=== PATIENT | female | born 1985 | race Caucasian/White ===

== ENCOUNTER → 2019-01-01 14:23 | Outpatient (CLI) | payer MEDICAID, SELFPAY ==
[2019-01-01 15:27] LABS: Basophils # 0.1 K/mm3 (0-0.2); Basophils % 0.4 % (0.1-2.0); Eosinophils # 0.5 K/mm3 (0.0-0.4); Eosinophils % 3.9 % (0.1-12.0); Hematocrit 44.5 % (37.0-47.0); Hemoglobin 14.4 g/dL (12.2-16.2); Lymphocytes # 2.8 K/mm3 (0.7-4.5); Lymphocytes % 21.4 % (10-50); Mean Corpuscular HGB Conc 32.4 g/dL (31.8-35.4); Mean Corpuscular Hemoglobin 31.2 pg (27.0-31.2); Mean Corpuscular Volume 96.3 fl (81-99); Mean Platelet Volume 8.4 fl (7.4-10.4); Monocytes # 0.6 K/mm3 (0.1-1.0); Monocytes % 4.7 % (1.7-9.3); Neutrophils % 69.5 % (37.0-80.0); Platelet Count 327 K/mm3 (142-424); Red Blood Count 4.62 M/mm3 (4.20-5.40); Red Cell Distribution Width 12.6 % (11.5-17.5)
[2019-01-01 17:45] LABS: Alanine Aminotransferase 28 U/L (12-78); Albumin Level 4.2 gm/dL (3.4-5.0); Albumin/Globulin Ratio 1.3 (1.1-1.8); Alkaline Phosphatase 68 U/L (46-116); Anion Gap 13.1 mEq/L (5-15); Aspartate Amino Transferase 12 U/L (15-37); Bilirubin,Total 0.3 mg/dL (0.2-1.0); Blood Urea Nitrogen 11 mg/dL (7-18); Calcium 9.2 mg/dL (8.5-10.1); Carbon Dioxide 27 mmol/L (21.0-32.0); Chloride 102 mmol/L (98-107); Chol/HDL Ratio 4.6 (1-3.5); Cholesterol 170 mg/dL (140-200); Creatinine,Serum 0.76 mg/dL (0.55-1.02); Estimated Glomerular Filt Rate 87 ml/min (>60); Free T4 (Free Thyroxine) 0.88 ng/dl (0.76-1.46); GFR (African American) 105 ML/MIN (>60); Globulin 3.2 gm/dl (1.3-3.2); Glucose 119 mg/dL (74-106); HDL Cholesterol 37 mg/dL (29-89); LDL Cholesterol 92 mg/dL (0-130); Potassium 4.1 mmoL/L (3.5-5.1); Sodium 138 mmol/L (136-145); Total Protein,Serum 7.4 gm/dL (6.4-8.2); Triglycerides 206 mg/dL (30-200); VLDL Cholesterol 41 mg/dL (0-40)
[2019-01-03 17:08] LABS: Hep A Ab, IgM Negative (Negative); Hepatitis B Core Antibody IgM Negative (Negative); Hepatitis B Surface Antigen Negative (Negative)
[2019-01-04 09:54] LABS: Hepatitis C Antibody 0.3 s/co ratio (0.0-0.9)
[2019-01-04 09:55] LABS: Vitamin D 25 Hydroxy 29.6 ng/mL (30.0-100.0)
== END ==
PROVIDERS: Visit Provider Emergency Medicine
DX: R53.83 Other fatigue (principal); Z00.00 Encounter for general adult medical examination without abnormal findings; Z98.2 Presence of cerebrospinal fluid drainage device; Z72.0 Tobacco use; E66.3 Overweight; F32.9 Major depressive disorder, single episode, unspecified; F41.9 Anxiety disorder, unspecified
CPT/HCPCS: 80053; 80061; 80074; 82652; 84439; 84443; 85025

== ENCOUNTER → 2019-01-09 09:18 | Outpatient (CLI) | payer MEDICAID, SELFPAY ==
[2019-01-09 10:41] LABS: Anion Gap 13.2 mEq/L (5-15); Blood Urea Nitrogen 9 mg/dL (7-18); Calcium 8.8 mg/dL (8.5-10.1); Carbon Dioxide 29 mmol/L (21.0-32.0); Chloride 104 mmol/L (98-107); Creatinine,Serum 0.66 mg/dL (0.55-1.02); Estimated Glomerular Filt Rate 103 ml/min (>60); GFR (African American) 124 ML/MIN (>60); Glucose 106 mg/dL (74-106); Potassium 4.2 mmoL/L (3.5-5.1); Sodium 142 mmol/L (136-145)
== END ==
PROVIDERS: Physician Assistant; Visit Provider Emergency Medicine
DX: R73.9 Hyperglycemia, unspecified (principal)
CPT/HCPCS: 36415; 80048

== ENCOUNTER → 2019-02-27 12:40 | Outpatient (CLI) | payer MEDICAID, SELFPAY ==
--- NOTE | 2019-02-27 12:43 | XR_ITS ---
PROCEDURE: XR ANKLE RT MIN 3V CLINICAL INDICATION: pain Right ankle pain COMPARISON: No exams were available for comparison FINDINGS: No fracture, dislocation, lytic change, or blastic change evident. No significant degenerative change IMPRESSION: No acute findings. Dictated by: Charlie Medrano MD 02/27/2019 17:24 Electronically signed by Charlie Medrano MD in [facility] 02/27/2019 17:24
== END ==
PROVIDERS: PCP Emergency Medicine; Referring Provider Nurse Practitioner Family; Visit Provider Nurse Practitioner Family
DX: M25.571 Pain in right ankle and joints of right foot (principal)
CPT/HCPCS: 73610

== ENCOUNTER → 2019-03-16 14:03 | Outpatient (CLI) | payer MEDICAID, SELFPAY ==
--- NOTE | 2019-03-16 14:04 | XR_ITS ---
PROCEDURE: XR KNEE RT 3V CLINICAL INDICATION: pain COMPARISON: No exams were available for comparison FINDINGS: No fracture or dislocation. No lytic or blastic change. There is normal mineralization. The joint spaces are well-preserved. No significant degenerative/arthritic changes. No erosive changes evident. Other findings:There is a well-circumscribed lucency overlying the intercondylar region of the distal femur and may be due to a small cortical defect IMPRESSION: No acute findings. Dictated by: Charlie Medrano MD 03/16/2019 16:29 Electronically signed by Charlie Medrano MD in [facility] 03/16/2019 16:29
--- NOTE | 2019-03-16 14:04 | US_ITS ---
PROCEDURE: US TRANSVAGINAL CLINICAL INDICATION: US T/V- DUB Pelvic Pain COMPARISON: No exams were available for comparison FINDINGS: UTERUS: 8.8 x 3.4 x 5.4 cm. Combined endometrial thickness is 6 mm. scar is noted along the anterior and lower aspect of the uterus. LEFT OVARY: 2.5 x 2.3 cm. Unremarkable appearance. Positive blood flow RIGHT OVARY: 4.5 cm x 2.7 cm with small follicles noted and positive blood flow.. The there is a 1.8 cm hypoechoic area within the right ovary with some low level echoes and may be due to a small hemorrhagic cyst. There is a small amount of fluid in the cul-de-sac. IMPRESSION: 1.8 cm complex right ovarian cyst which could be due to a hemorrhagic or ruptured ovarian cyst with a small amount of fluid in the cul-de-sac Dictated by: Charlie Medrano MD 03/16/2019 17:36 Electronically signed by Charlie Medrano MD in [facility] 03/16/2019 17:36
== END ==
PROVIDERS: PCP Emergency Medicine; Visit Provider Obstetrics & Gynecology
DX: N93.8 Other specified abnormal uterine and vaginal bleeding (principal); R10.2 Pelvic and perineal pain; M25.569 Pain in unspecified knee
CPT/HCPCS: 73562; 76830

== ENCOUNTER → 2019-05-07 13:16 | Outpatient (CLI) | payer MEDICAID, SELFPAY ==
--- NOTE | 2019-05-07 13:36 | XR_ITS ---
PROCEDURE: XR LUMBAR SPINE 2-3V CLINICAL INDICATION: pain Midline back pain COMPARISON: No exams were available for comparison FINDINGS: There is normal alignment. No fracture or dislocation. No lytic or blastic change. A ORDNANCE ENGINEERING TECHNICIAN shunt traverses the right abdomen with tip in the left pelvic region. There is a nonspecific calcific density overlying the medial aspect of the right ilium at 6 mm. This is nonspecific and could be due to an appendicoliths. There are 2 calcific densities in the left pelvic region which may be due to phleboliths. A metallic clip is present over the left paracentral aspect of the mid sacrum IMPRESSION: 1. Negative lumbar spine. 2. Possible appendicoliths Dictated by: Charlie Medrano MD 05/07/2019 14:38 Electronically signed by Charlie Medrano MD in [facility] 05/07/2019 14:38
[2019-05-07 14:07] LABS: Erythrocyte Sedimentation Rate 15 mm/hr (0-20)
[2019-05-07 14:23] LABS: C-Reactive Protein < 0.2 mg/dL (0.0-0.9)
[2019-05-09 11:08] LABS: PTT-LA 41.7 sec (0.0-51.9); dRVVT 44.4 sec (0.0-47.0)
[2019-05-09 17:55] LABS: Lupus Reflex Interpretation Comment: (.)
[2019-05-09 18:00] LABS: RA Latex Turbid. <10.0 IU/mL (0.0-13.9)
[2019-05-10 07:08] LABS: Anti-Cyclic Citrullinated Pept 6 units (0-19)
[2019-05-10 13:28] LABS: Anti-Centromere B Antibodies <0.2 AI (0.0-0.9); Anti-Jo-1 <0.2 AI (0.0-0.9); Anti-Smith Antibody <0.2 AI (0.0-0.9); Antichromatin Antibodies <0.2 AI (0.0-0.9); Antiscleroderma-70 Antibodies <0.2 AI (0.0-0.9); RNP Antibodies <0.2 AI (0.0-0.9); Sjogren's Anti-SS-A <0.2 AI (0.0-0.9); Sjogren's Anti-SS-B <0.2 AI (0.0-0.9)
[2019-05-10 14:49] LABS: Anti-DNA (DS) Ab Qn 1 IU/mL (0-9)
== END ==
PROVIDERS: PCP Emergency Medicine; Visit Provider Nurse Practitioner Family
DX: M54.41 Lumbago with sciatica, right side (principal)
CPT/HCPCS: 36415; 72100; 85613; 85651; 86140; 86200; 86225; 86235; 86431

== ENCOUNTER → 2019-06-04 13:47 | Outpatient (CLI) | payer MEDICAID, SELFPAY ==
--- NOTE | 2019-06-04 13:48 | CT_ITS ---
PROCEDURE: CT HEAD/BRAIN WO CON CLINICAL INDICATION: gao, hx of brain shunt Headaches, history of shunt COMPARISON: No exams were available for comparison TECHNIQUE: Axial images obtained. All CT scans at the facility use one or more dose reduction, viz: automated exposure control, ma/kV adjustment per patient size (including targeted exams where dose is matched to indication, i.e. head), or iterative reconstruction technique. FINDINGS: No midline shift, mass effect, intracranial hemorrhage, hydrocephalus, or extra-axial fluid collection is evident. A FABRIC LAY OUT WORKER shunt is present entering the cranium in the right parietal region with the tip projecting along the anterior horn of the right lateral ventricle. The right lateral ventricle is smaller than the left. Unremarkable appearing left lateral ventricle. No hydrocephalus. No acute intracranial hemorrhage. There is a small defect in the right frontal lobe which could be due to an old ventriculostomy site. The calvarium has an unremarkable appearance. No mastoid effusion. There is mucosal thickening of the frontal sinuses inferiorly IMPRESSION: 1. No acute intracranial finding. 2. FABRIC LAY OUT WORKER shunt present as described above. 3. Bilateral frontal sinus disease Dictated by: Charlie Medrano MD 06/04/2019 14:42 Electronically signed by Charlie Medrano MD in [facility] 06/04/2019 14:42
== END ==
PROVIDERS: PCP Emergency Medicine; Visit Provider Emergency Medicine
DX: R51 Headache (principal); Z98.2 Presence of cerebrospinal fluid drainage device
CPT/HCPCS: 70450

== ENCOUNTER → 2019-06-21 10:21 | Outpatient (POV) | payer MEDICAID, SELFPAY | PROVIDERS: PCP Specialist; Visit Provider Specialist | DX: G25.81 Restless legs syndrome (principal); M54.9 Dorsalgia, unspecified | CPT/HCPCS: 95886; 95908 ==

== ENCOUNTER → 2021-01-16 10:18 | Outpatient (CLI) | payer MEDICAID, SELFPAY | PROVIDERS: PCP Emergency Medicine; Visit Provider Nurse Practitioner | DX: Z20.822 Contact with and (suspected) exposure to COVID-19 (principal) | CPT/HCPCS: C9803; U0003; U0005 ==

== ENCOUNTER 2022-02-21 21:36 | Emergency (ER) | payer MEDICAID, SELFPAY ==
[2022-02-21 21:36] VITALS: BP 122/86; PULSE 68; RESP 16; TEMP 36.6; O2SAT 100; BMI 20.9
--- NOTE | 2022-02-21 21:37 | ECG_ITS ---
APPROVED REPORT Exam: Resting ECG HR:69 bpm ECG Measurements Heart Rate 69 AXES DC 143 P 59 QRSd 81 QRS 92 QT 379 T 47 QTc 398 Conclusion SINUS RHYTHM WITH SINUS ARRHYTHMIA BORDERLINE RIGHT AXIS DEVIATION [QRS AXIS > 90] BORDERLINE ECG UNCONFIRMED REPORT Electronically signed by : Rohith Gong MD 02/24/2022 21:22:09
--- NOTE | 2022-02-21 21:45 | XR_ITS ---
PROCEDURE INFORMATION: Exam: XR Chest Exam date and time: 02/21/2022 9:42 PM Age: 36 years old Clinical indication: Sternal or substernal pain; Prior surgery; Surgery date: 6+ months; Surgery type: Shunt; Additional info: Chest pain TECHNIQUE: Imaging protocol: Radiologic exam of the chest. Views: 2 views. COMPARISON: No relevant prior studies available. FINDINGS: Tubes, catheters and devices: Shunt is partially visualized along the right neck and thorax with the tip not definitively identified. Lungs: No consolidation. Pleural spaces: No pneumothorax. Heart/Mediastinum: No cardiomegaly. Bones/joints: No acute fracture. IMPRESSION: Shunt is partially visualized along the right neck and thorax with the tip not definitively identified.
--- NOTE | 2022-02-21 21:50 | PC.NURSE ---
Pt gone to RAD for CXR
[2022-02-21 21:55] LABS: Basophils # 0.2 K/mm3 (0-0.2); Basophils % 1.3 % (0.1-2.0); Eosinophils # 0.3 K/mm3 (0.0-0.4); Eosinophils % 2.2 % (0.1-12.0); Hematocrit 48.3 % (37.0-47.0); Hemoglobin 15.7 g/dL (12.2-16.2); Lymphocytes # 3.6 K/mm3 (0.7-4.5); Lymphocytes % 29.2 % (10-50); Mean Corpuscular HGB Conc 32.5 g/dL (31.8-35.4); Mean Corpuscular Hemoglobin 30.7 pg (27.0-31.2); Mean Corpuscular Volume 94.4 fl (81-99); Mean Platelet Volume 8.3 fl (7.4-10.4); Monocytes # 0.5 K/mm3 (0.1-1.0); Monocytes % 4.4 % (1.7-9.3); Neutrophils # 7.7 K/mm3 (1.8-7.8); Neutrophils % 62.8 % (37.0-80.0); Platelet Count 346 K/mm3 (142-424); Red Blood Count 5.12 M/mm3 (4.20-5.40); Red Cell Distribution Width 12.7 % (11.5-17.5); White Blood Count 12.3 K/mm3 (4.8-10.8)
--- NOTE | 2022-02-21 22:02 | PC.NURSE ---
Pt back from RAD
[2022-02-21 22:07] LABS: Chloride 101 mmol/L (98-107); Potassium 3.7 mmoL/L (3.5-5.1)
[2022-02-21 22:10] LABS: Blood Urea Nitrogen 7 mg/dl (7-17); Carbon Dioxide 30 mmol/L (22.0-30.0); Creatinine Clearance Estimated 102 mL/min (50-200); Estimated Glomerular Filt Rate 94 ml/min (>60); GFR (African American) 114 ML/MIN (>60)
[2022-02-21 22:11] LABS: Calcium 9.1 mg/dl (8.4-10.2); Glucose 102 mg/dl (74-100)
[2022-02-21 22:34] LABS: Troponin I < 0.01 ng/ml (0.00-0.034)
[2022-02-21 22:51] LABS: Anion Gap 13.7 mEq/L (5-15); Sodium 141 mmol/L (136-145)
[2022-02-21 23:00] VITALS: BP 122/72; PULSE 84; O2SAT 98
[2022-02-21 23:01] LABS: Lipase 67 U/L (23-300)
--- NOTE | 2022-02-21 23:01 | PC.NURSE ---
Dr. Suh at
--- NOTE | 2022-02-21 23:01 | HMH.EDCP ---
Discharge Plan Disposition Patient Disposition: Home, Self-Care Chief Complaint: Chest Pain Prescriptions Prescriptions: No Action albuterol sulfate 90 mcg/actuation HFA aerosol inhaler 2 puff INHALATION Q4-6H PRN (Reason: asthma) buspirone 10 mg tablet 10 mg PO .COMPLEX Qty: 30 0RF Rx Instructions: 10 mg PO at bedtime; duloxetine 30 mg capsule,delayed release(DR/EC) 30 mg PO DAILY Qty: 30 0RF Rx Instructions: take with the 60mg capsule; dosage is 90mg total daily. duloxetine 60 mg capsule,delayed release(DR/EC) 60 mg PO DAILY Qty: 30 0RF Rx Instructions: take with the 30mg capsule; the dosage is 90mg total montelukast 10 mg tablet 10 mg PO QPM Qty: 90 0RF omeprazole 40 MG capsule,delayed release(DR/EC) 40 mg PO DAILY Referrals Follow up/Referrals: Dawson Suh MD [Primary Care Provider] - See instructions Clinical Impressions Clinical Impression: History of brain shunt, Tobacco use, Atypical chest pain, Cholelithiasis Discharge ED Provider: Dawson Suh Chest Pain HPI General Chief Complaint: Chest Pain Stated Complaint: Chest Pain Time Seen by Provider: 02/21/22 23:01 Mode of Arrival: Ambulatory Source of Information: Patient and Medical Record Limitations: No Limitations Description of Symptoms (Recalled from ER Triage Doc. by RN): Pt reports chest pain that started yesterday that she thought was heart burn and later subsided. Pt says today the pain became worse and describes it as a pressure and rates pain 7 out of 10. No radiating pain. Denies SOA, N/V/D, diaphoresis. History of Present Illness HPI narrative: ant chest pain last pm and tonight - pressure - no known card dis - has brain shunt - complaint: chest pain Onset (ago): day(s) Duration: intermittent Activity at onset: during rest Pain location: substernal Severity: moderate Quality: other (pressure ) Pain radiation: none Relieving factors: nothing Exacerbating factors: nothing Risk Factors for CAD: Family Hx of CAD and Smoking Treatments prior to or on arrival for Cardiac Chest Pain: none Contraindication for Aspirin: Adverse reaction to drug JUVENAL Score for Non-Stemi Age of Patient: 30-39 years old Heart Rate: 50-69 bpm Systolic Blood Pressure: 120-139 mmhg Serum Creatinine: 0.40-0.79 mg/dl CHF Killip Class: I-No CHF Other Risk Factors: None Non-Stemi Risk Score: 49 Related Data On Oral Contraceptives: No Home Medications Medication Instructions Recorded Confirmed albuterol sulfate 90 mcg/actuation 2 puff inhalation Q4-6H PRN asthma 02/26/19 07/19/19 aerosol inhaler omeprazole 40 mg capsule,delayed 40 mg PO DAILY GERD 04/15/19 07/19/19 release Previous Rx's Medication Instructions Recorded buspirone 10 mg tablet 10 mg PO .COMPLEX Depression #30 07/19/19 tabs duloxetine 30 mg capsule,delayed 30 mg PO DAILY Depression #30 caps 07/19/19 release duloxetine 60 mg capsule,delayed 60 mg PO DAILY Depression #30 caps 07/19/19 release montelukast 10 mg tablet 10 mg PO QPM Breathing problems 07/28/19 #90 tabs Allergies Allergy/AdvReac Type Severity Reaction Status Date / Time gabapentin Allergy Intermediate Verified 07/19/19 15:47 aspirin Allergy Verified 07/19/19 15:47 PFSH PFSH Social History Smoking Status: Current every day smoker tobacco type: cigarettes packs per day: 1 and smokeless tobacco alcohol intake: former substance use type: denies use current occupational status: unemployed Travel in the last 8 weeks: None household members: family housing: house number of children: 2 ROS Obtained: Yes All systems reviewed & no additional complaints except as documented Constitutional Constitutional: Denies fever(s) Cardiovascular Cardiovascular: Reports as per HPI and Reports chest pain Physical Exam General General appearance: alert Head Head exam: normocephalic Eye Eye exam: Present PERRL and EOMI ENT ENT ex
--- NOTE | 2022-02-21 23:04 | CT_ITS ---
PROCEDURE INFORMATION: Exam: CTA Chest With Contrast Exam date and time: 02/21/2022 11:27 PM Age: 36 years old Clinical indication: Pain; Angina pectoris; Additional info: Chest pain TECHNIQUE: Imaging protocol: Computed tomographic angiography of the chest with contrast. 3D rendering (Not supervised by radiologist): MIP and/or 3D reconstructed images were created by the technologist. Radiation optimization: All CT scans at this facility use at least one of these dose optimization techniques: automated exposure control; mA and/or kV adjustment per patient size (includes targeted exams where dose is matched to clinical indication); or iterative reconstruction. Contrast material: ISOVUE 370; Contrast volume: 70 ml; Contrast route: INTRAVENOUS (IV); COMPARISON: CR XR CHEST 2V 02/21/2022 9:42 PM FINDINGS: Tubes, catheters and devices: Shunt. Pulmonary arteries: No pulmonary embolism. Aorta: Unremarkable. No aneurysm. Lungs: No consolidation. Few nodules and/or focal scarring, up to 0.3 cm. Pleural spaces: No significant pleural effusion. No pneumothorax. Heart: No cardiomegaly. No pericardial effusion. Lymph nodes: No pathologically enlarged lymph nodes. Gallbladder and bile ducts: Calcified gallstones. Bones/joints: No acute fracture. Soft tissues: Unremarkable. IMPRESSION: 1. No CT evidence of pulmonary embolism. 2. Cholelithiasis. 3. Pulmonary nodules. For patients at low risk (minimal or absent history of smoking and of other known risk factors), no routine follow-up is indicated. For patients at high risk (history of smoking or of other known risk factors), consider optional CT at 12 months. (ann marie Quiroz., Fleischner Society, 2017)
[2022-02-21 23:08] LABS: Microscopic, Urine URINE MICROSCOPIC (MICROSCOPIC)
[2022-02-21 23:11] LABS: Appearance,Urine CLEAR (Clear); Bilirubin,Urine Negative (Negative); Blood, Urine Negative (Negative); Color,Urine YELLOW (Yellow); Glucose,Urine (UA) Negative (Negative); Ketones,Urine Negative (Negative); Leukocyte Esterase,Urine 1+ (Negative); Nitrate,Urine Negative (Negative); PH,Urine 6.5 (5.0-8.5); Protein,Urine Negative (Negative); Specific Gravity, Urine <= 1.005 (1.005-1.030); Urobilinogen,Urine 0.2 EU/dl (0.2)
[2022-02-21 23:17] LABS: Urine Pregnancy, HCG Qual. Negative (Negative)
[2022-02-21 23:44] LABS: Bacteria,Urine 1+ /lpf; RBC,Urine Occasional #/hpf (0-3)
[2022-02-22] VITALS: BP 136/80; PULSE 65; O2SAT 98
[2022-02-22 00:30] VITALS: BP 130/78; PULSE 72; O2SAT 100
[2022-02-22 00:51] VITALS: BP 130/78; PULSE 69; RESP 18; TEMP 36.9; O2SAT 100
== END 2022-02-22 00:55 | disposition home or self-care (01) ==
PROVIDERS: Emergency Provider Emergency Medicine; PCP Emergency Medicine
DX: R07.89 Other chest pain (principal); K80.20 Calculus of gallbladder without cholecystitis without obstruction; Z72.0 Tobacco use; Z98.2 Presence of cerebrospinal fluid drainage device; Z88.6 Allergy status to analgesic agent
CPT/HCPCS: 71046; 71275; 80048; 81001; 81025; 83690; 84484; 85025; 87086; 93005; 96374; 96375; 99285; Q9967

== ENCOUNTER 2022-08-02 18:30 | Emergency (ER) | payer MEDICAID, SELFPAY ==
[2022-08-02 18:37] VITALS: BP 131/93; PULSE 89; RESP 18; TEMP 36.6; O2SAT 99; BMI 27.1
--- NOTE | 2022-08-02 18:39 | XR_ITS ---
PROCEDURE INFORMATION: Exam: XR Right Femur Exam date and time: 08/02/2022 6:59 PM Age: 36 years old Clinical indication: Injury or trauma; Fall; Other: Pain; Additional info: Fall, pain entire R leg TECHNIQUE: Imaging protocol: Radiologic exam of the right femur. Views: 2 views. COMPARISON: CR XR KNEE RT 3V 16/03/2019 14:08 FINDINGS: Bones/joints: No acute fracture or dislocation. Soft tissues: Unremarkable. IMPRESSION: No acute fracture or dislocation.
--- NOTE | 2022-08-02 18:39 | XR_ITS ---
PROCEDURE INFORMATION: Exam: XR Right Knee Exam date and time: 08/02/2022 6:59 PM Age: 36 years old Clinical indication: Injury or trauma; Fall; Other: Pain; Additional info: Fall, pain entire R leg TECHNIQUE: Imaging protocol: Radiologic exam of the right knee. Views: 3 views. COMPARISON: CR XR KNEE RT 3V 16/03/2019 14:08 FINDINGS: Bones/joints: Superior pole patellar enthesophyte. No acute fracture or dislocation. Soft tissues: Normal. IMPRESSION: No acute fracture or dislocation.
--- NOTE | 2022-08-02 18:39 | XR_ITS ---
PROCEDURE INFORMATION: Exam: XR Right Tibia and Fibula Exam date and time: 08/02/2022 6:59 PM Age: 36 years old Clinical indication: Injury or trauma; Fall; Other: Pain; Additional info: Fall, pain entire R leg TECHNIQUE: Imaging protocol: Radiologic exam of the right tibia and fibula. Views: 2 views. COMPARISON: CR XR ANKLE RT MIN 3V 06/08/2018 12:49 FINDINGS: Bones/joints: No acute fracture or dislocation. Soft tissues: Normal. IMPRESSION: No acute fracture or dislocation.
--- NOTE | 2022-08-02 18:39 | XR_ITS ---
PROCEDURE INFORMATION: Exam: XR Pelvis Exam date and time: 08/02/2022 6:59 PM Age: 36 years old Clinical indication: Pelvic pain; Prior surgery; Surgery date: 6+ months; Surgery type: Shunt; Additional info: Fall, pain entire R leg TECHNIQUE: Imaging protocol: Radiologic exam of the pelvis. Views: 1 or 2 view. COMPARISON: CR XR LUMBAR SPINE 2-3V 01/27/2020 13:44 FINDINGS: Tubes, catheters and devices: Surgical clips and shunt tubing projects over the pelvis. Bones/joints: No acute fracture or dislocation. Soft tissues: Unremarkable. IMPRESSION: No acute fracture or dislocation.
--- NOTE | 2022-08-02 18:58 | HMH.EDGENADL ---
Discharge Plan Disposition Patient Disposition: Home, Self-Care Condition: Good Prescriptions Prescriptions: No Action albuterol sulfate 90 mcg/actuation HFA aerosol inhaler 2 puff INHALATION Q4-6H PRN (Reason: asthma) buspirone 10 mg tablet 10 mg PO .COMPLEX Qty: 30 0RF Rx Instructions: 10 mg PO at bedtime; duloxetine 30 mg capsule,delayed release(DR/EC) 30 mg PO DAILY Qty: 30 0RF Rx Instructions: take with the 60mg capsule; dosage is 90mg total daily. duloxetine 60 mg capsule,delayed release(DR/EC) 60 mg PO DAILY Qty: 30 0RF Rx Instructions: take with the 30mg capsule; the dosage is 90mg total montelukast 10 mg tablet 10 mg PO QPM Qty: 90 0RF omeprazole 40 MG capsule,delayed release(DR/EC) 40 mg PO DAILY Referrals Follow up/Referrals: Dawson Suh MD [Primary Care Provider] - See instructions Activity Restrictions/Add. Instructions Additional Instructions/Restrictions: You were evaluated in the emergency department today. At this time, we feel that she has a musculoskeletal strain/sprain. Please follow-up with your primary care provider over the next 3 days should your symptoms not improve. You may put weight on your leg as tolerated. Take Tylenol and ibuprofen at home as needed for pain. Return to the emergency department for any new or worsening symptoms. Clinical Impressions Clinical Impression: Muscle strain of right lower extremity Qualifiers: Encounter type: initial encounter Qualified Code(s): S86.911A - Strain of unspecified muscle(s) and tendon(s) at lower leg level, right leg, initial encounter Instructions Patient Instructions: DI for Muscle Strain, How To Perform RICE (Rest, Ice, Compress, Elevate) Discharge ED Provider: Izzy Teixeira General Adult HPI General Chief complaint: Extremity Injury, Lower Stated complaint: AO 07/30@HOME iNJURED R LEG Time Seen by Provider: 08/02/22 18:35 Mode of Arrival: Wheelchair Source of Information: Patient Limitations: No Limitations Description of Symptoms (Recalled from ER Triage Doc. by RN): Presents via POV d/t RLE injury secondary to mechanical fall off the porch at approx. 6p. 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 History of Present Illness HPI narrative: This patient is a 36-year-old female presenting to the emergency department for evaluation with concern for right leg pain. She states that she stepped abnormally off of a porch and had stepped on her right lower extremity with in an awkward position. She felt immediate pain in her right thigh radiating down to just below her right knee. It is moderate, aching, and constant. She states that she has a lot of difficulty bearing weight secondary to pain. She took 4 ibuprofen prior to arrival without improvement in her symptoms. She did not truly fall, hit her head, or lose consciousness. She is not on any blood thinners. She denies any other pain or injuries at this time. Related Data Home Medications Medication Instructions Recorded Confirmed albuterol sulfate 90 mcg/actuation 2 puff inhalation Q4-6H PRN asthma 02/26/19 07/19/19 aerosol inhaler omeprazole 40 mg capsule,delayed 40 mg PO DAILY GERD 04/15/19 07/19/19 release Previous Rx's Medication Instructions Recorded buspirone 10 mg tablet 10 mg PO .COMPLEX Depression #30 07/19/19 tabs duloxetine 30 mg capsule,delayed 30 mg PO DAILY Depression #30 caps 07/19/19 release duloxetine 60 mg capsule,delayed 60 mg PO DAILY Depression #30 caps 07/19/19 release montelukast 10 mg tablet 10 mg PO QPM Breathing problems 07/28/19 #90 tabs Allergies Allergy/AdvReac Type Severity Reaction Status Date / Time gabapentin Allergy Intermediate Verified 07/19/19 15:47 aspirin Allergy Verified 07/19/19 15:47 [facility] Disclaimer: The information contained in this section may have been updated after the patient was seen, as this information can be updated by other users. Social History (Revi
[2022-08-02 19:48] VITALS: BP 130/90; PULSE 88; RESP 18; TEMP 36.6; O2SAT 99
== END 2022-08-02 19:59 | disposition home or self-care (01) ==
PROVIDERS: Emergency Provider Emergency Medicine; PCP Emergency Medicine
DX: S86.911A Strain of unspecified muscle(s) and tendon(s) at lower leg level, right leg, initial encounter (principal); X50.9XXA Other and unspecified overexertion or strenuous movements or postures, initial encounter
CPT/HCPCS: 72170; 73552; 73562; 73590; 99284; 99285

== ENCOUNTER 2022-08-21 22:17 | Emergency (ER) | payer OTHER, MEDICAID, SELFPAY ==
[2022-08-21 23:01] VITALS: BP 136/80; BP 136/87; PULSE 74; PULSE 79; RESP 16; TEMP 36.8; O2SAT 98; BMI 28.2
--- NOTE | 2022-08-21 23:05 | XR_ITS ---
PROCEDURE INFORMATION: Exam: XR Right Foot Exam date and time: 08/21/2022 11:49 PM Age: 36 years old Clinical indication: Pain; Foot; Right; Additional info: Ankle injury at work TECHNIQUE: Imaging protocol: Radiologic exam of the right foot. Views: 3 or more views. Total images: 3 COMPARISON: CR XR ANKLE RT MIN 3V 08/21/2022 11:48 PM FINDINGS: Bones/joints: No acute fracture or joint dislocation. Joint spaces are well maintained. No concerning bone lesions or calcifications. Soft tissues: Unremarkable soft tissues. IMPRESSION: Negative right foot.
--- NOTE | 2022-08-21 23:05 | XR_ITS ---
PROCEDURE INFORMATION: Exam: XR Right Ankle Exam date and time: 08/21/2022 11:48 PM Age: 36 years old Clinical indication: Pain; Ankle; Right; Additional info: Ankle injury at work TECHNIQUE: Imaging protocol: Radiologic exam of the right ankle. Views: 3 or more views. Total images: 3 COMPARISON: CR XR ANKLE RT MIN 3V 02/27/2019 12:49 PM FINDINGS: Bones/joints: No acute fracture or joint dislocation. Ankle mortise is maintained. No joint effusion. No concerning bone lesions or calcifications. Soft tissues: Unremarkable soft tissues. IMPRESSION: Negative right ankle.
--- NOTE | 2022-08-21 23:05 | XR_ITS ---
PROCEDURE INFORMATION: Exam: XR Right Tibia and Fibula Exam date and time: 08/21/2022 11:47 PM Age: 36 years old Clinical indication: Pain; Lower leg; Right; Additional info: Ankle injury at work TECHNIQUE: Imaging protocol: Radiologic exam of the right tibia and fibula. Views: 2 views. Total images: 4 COMPARISON: CR XR TIBIA FIBULA RT 2V 08/02/2022 6:59 PM FINDINGS: Bones/joints: No acute fracture or joint dislocation. Proximal and distal articulations are preserved. No concerning bone lesions or calcifications. Soft tissues: Unremarkable soft tissues. IMPRESSION: Negative right tibia and fibula.
[2022-08-21 23:30] VITALS: BP 124/84; PULSE 65; O2SAT 97
--- NOTE | 2022-08-21 23:39 | HMH.EDLOEX ---
Discharge Plan Disposition Patient Disposition: Home, Self-Care Prescriptions Prescriptions: New meloxicam 15 mg tablet 15 mg PO DAILY Qty: 10 0RF No Action albuterol sulfate 90 mcg/actuation HFA aerosol inhaler 2 puff INHALATION Q4-6H PRN (Reason: asthma) buspirone 10 mg tablet 10 mg PO .COMPLEX Qty: 30 0RF Rx Instructions: 10 mg PO at bedtime; duloxetine 30 mg capsule,delayed release(DR/EC) 30 mg PO DAILY Qty: 30 0RF Rx Instructions: take with the 60mg capsule; dosage is 90mg total daily. duloxetine 60 mg capsule,delayed release(DR/EC) 60 mg PO DAILY Qty: 30 0RF Rx Instructions: take with the 30mg capsule; the dosage is 90mg total montelukast 10 mg tablet 10 mg PO QPM Qty: 90 0RF omeprazole 40 MG capsule,delayed release(DR/EC) 40 mg PO DAILY Referrals Follow up/Referrals: Dawson Suh MD [Primary Care Provider] - See instructions Grazyna Magallanes DPM [Staff Physician] - See instructions Clinical Impressions Clinical Impression: Right ankle sprain, Right foot sprain, Ankle sprain and strain Discharge ED Provider: Angeli (ED)Dawson Lower Extremity Injury HPI General Chief Complaint: Extremity Injury, Lower Stated Complaint: WC 08/21@2150injured R ankle Time Seen by Provider: 08/21/22 23:39 Mode of Arrival: Ambulatory Source of Information: Patient and Medical Record Limitations: No Limitations Description of Symptoms (Recalled from ER Triage Doc. by RN): Pt states that at approx 1000 this am when she was working she hit her ankle on a table and has been having pain since. States that she is unable to bear weight and has sharp pain from her ankle bone up her calf when she tries to ambulate. History of Present Illness HPI Narrative: acute injury to rt ankle/foot/lower leg at work today with inc pain and dec wt bearing complaint: ankle injury and foot injury Onset (ago): hour(s) Injury: Right: ankle and foot Type of Injury: unknown Place: work Severity: moderate Exacerbating factors: weight bearing Associated symptoms: swelling and able to partially bear weight Other symptoms: none Treatments prior to arrival: cold therapy Related Data Home Medications Medication Instructions Recorded Confirmed albuterol sulfate 90 mcg/actuation 2 puff inhalation Q4-6H PRN asthma 02/26/19 07/19/19 aerosol inhaler omeprazole 40 mg capsule,delayed 40 mg PO DAILY GERD 04/15/19 07/19/19 release Previous Rx's Medication Instructions Recorded buspirone 10 mg tablet 10 mg PO .COMPLEX Depression #30 07/19/19 tabs duloxetine 30 mg capsule,delayed 30 mg PO DAILY Depression #30 caps 07/19/19 release duloxetine 60 mg capsule,delayed 60 mg PO DAILY Depression #30 caps 07/19/19 release montelukast 10 mg tablet 10 mg PO QPM Breathing problems 07/28/19 #90 tabs meloxicam 15 mg tablet 15 mg PO DAILY #10 tabs 08/22/22 Allergies Allergy/AdvReac Type Severity Reaction Status Date / Time gabapentin Allergy Intermediate Verified 07/19/19 15:47 aspirin Allergy Verified 07/19/19 15:47 [facility] Disclaimer: The information contained in this section may have been updated after the patient was seen, as this information can be updated by other users. Social History Smoking Status: Current every day smoker tobacco type: cigarettes packs per day: 1 and smokeless tobacco alcohol intake: former substance use type: denies use current occupational status: unemployed Travel in the last 8 weeks: None household members: family housing: house number of children: 2 ROS Obtained: Yes All systems reviewed & no additional complaints except as documented Physical Exam General General appearance: alert Head Head exam: normocephalic Eye Eye exam: Present PERRL and EOMI ENT ENT exam: Present mucous membranes moist Neck Neck exam: Present trachea midline Respiratory Respiratory e
[2022-08-22 00:30] VITALS: BP 121/74; PULSE 69; O2SAT 99
[2022-08-22 00:55] VITALS: BP 122/76; PULSE 82; RESP 20; TEMP 36.6
== END 2022-08-22 01:11 | disposition home or self-care (01) ==
PROVIDERS: Emergency Provider Emergency Medicine; PCP Emergency Medicine
DX: S93.401A Sprain of unspecified ligament of right ankle, initial encounter (principal); S93.601A Unspecified sprain of right foot, initial encounter; F17.210 Nicotine dependence, cigarettes, uncomplicated; W22.09XA Striking against other stationary object, initial encounter; Y99.0 Civilian activity done for income or pay
CPT/HCPCS: 73590; 73610; 73630; 99283; 99284

== ENCOUNTER → 2022-10-04 16:49 | Outpatient (CLI) | payer MEDICAID, SELFPAY ==
[2022-10-04 17:28] LABS: Basophils # 0.1 K/mm3 (0-0.2); Basophils % 0.6 % (0.1-2.0); Eosinophils # 0.3 K/mm3 (0.0-0.4); Hematocrit 43.7 % (37.0-47.0); Hemoglobin 13.8 g/dL (12.2-16.2); Lymphocytes # 3.2 K/mm3 (0.7-4.5); Lymphocytes % 26.2 % (10-50); Mean Corpuscular HGB Conc 31.7 g/dL (31.8-35.4); Mean Corpuscular Hemoglobin 30.1 pg (27.0-31.2); Mean Platelet Volume 8.1 fl (7.4-10.4); Monocytes # 0.7 K/mm3 (0.1-1.0); Monocytes % 5.3 % (1.7-9.3); Neutrophils # 8.2 K/mm3 (1.8-7.8); Neutrophils % 65.9 % (37.0-80.0); Platelet Count 289 K/mm3 (142-424); Red Cell Distribution Width 12.8 % (11.5-17.5); White Blood Count 12.4 K/mm3 (4.8-10.8)
[2022-10-04 17:33] LABS: INR 0.91 (0.9-1.1); Prothrombin Time 9.9 seconds (10.1-12.5)
[2022-10-04 17:40] LABS: Alanine Aminotransferase 22 U/L (12-78); Albumin Level 4.2 g/dl (3.5-5.0); Albumin/Globulin Ratio 1.9 (1.1-1.8); Alkaline Phosphatase 57 U/L (38-126); Anion Gap 14.1 mEq/L (5-15); Aspartate Amino Transferase 21 U/L (14-36); Bilirubin,Total 0.2 mg/dl (0.2-1.3); Blood Urea Nitrogen 6 mg/dl (7-17); Calcium 8.8 mg/dl (8.4-10.2); Carbon Dioxide 28 mmol/L (22.0-30.0); Chloride 99 mmol/L (98-107); Chol/HDL Ratio 3.1 (1-3.5); Cholesterol 149 mg/dl (140-200); Estimated Glomerular Filt Rate 112 ml/min (>60); GFR (African American) 136 ML/MIN (>60); Globulin 2.2 g/dL (1.3-3.2); Glucose 140 mg/dl (74-100); HDL Cholesterol 48 mg/dl (40-60); Potassium 4.1 mmoL/L (3.5-5.1); Sodium 137 mmol/L (136-145); Total Protein,Serum 6.4 g/dl (6.3-8.2); Triglycerides 207 mg/dl (30-150); VLDL Cholesterol 41 mg/dL (0-40)
[2022-10-04 17:57] LABS: Free T4 (Free Thyroxine) 0.94 ng/dl (0.78-2.19)
[2022-10-04 18:10] LABS: 25-OH Vitamin D, Total 37.7 ng/mL (30-100)
[2022-10-04 18:11] LABS: Thyroid Stimulating Hormone 0.84 uIU/mL (0.465-4.68)
[2022-11-13] LABS: HIV Screen 4th Generation wRfx Non Reactive; Hep A Ab, Total Negative; Hep B Core Ab, Total Negative; Hep B Surface Ab, Qual Reactive; Hepatitis C Antibody Non Reactive
[2022-11-13 00:01] LABS: Hepatitis B Surface Antigen Negative
== END ==
PROVIDERS: PCP Nurse Practitioner Family; Visit Provider Nurse Practitioner Family
DX: Z20.5 Contact with and (suspected) exposure to viral hepatitis (principal); R07.9 Chest pain, unspecified; R06.02 Shortness of breath; R10.11 Right upper quadrant pain; K82.9 Disease of gallbladder, unspecified; Z11.4 Encounter for screening for human immunodeficiency virus [HIV]
CPT/HCPCS: 36415; 80053; 80061; 82306; 84439; 84443; 85025; 85610; 86703; 86704; 86706; 86708; 87340; 87380; 87522; 87902; G0432

== ENCOUNTER → 2022-10-14 08:48 | Outpatient (CLI) | payer MEDICAID, SELFPAY ==
--- NOTE | 2022-10-14 08:49 | US_ITS ---
FINAL REPORT TECHNIQUE: ultrasound images of the right upper quadrant were obtained. CLINICAL HISTORY: RUQ FINDINGS: The liver parenchyma is normal in echogenicity. The gallbladder is contracted and contains gallstones as well as some sludge. There is gallbladder wall thickening that may be secondary in part to incomplete distension of the gallbladder. The common bile duct measures 4 mm in size and is normal in appearance. The portions of the right kidney visualized are normal.. IMPRESSION: The gallbladder is somewhat contracted, with stones and sludge present. There is questionable gallbladder wall thickening that may be due to incomplete distension. A repeat fasting exam might be helpful if indicated. Reviewed, Interpreted and Dictated by Toan Munoz MD Transcribed by Alyson Evans Authenticated and [facility]
[2022-10-14 10:15] VITALS: PULSE 65; PULSE 70
== END ==
PROVIDERS: PCP Emergency Medicine; Visit Provider Nurse Practitioner Family
DX: R10.11 Right upper quadrant pain (principal); R06.02 Shortness of breath
CPT/HCPCS: 76705; 94060; 94640; 94726; 94729

== ENCOUNTER → 2023-02-24 12:51 | Outpatient (CLI) | payer MEDICAID, SELFPAY ==
--- NOTE | 2023-02-24 12:52 | CT_ITS ---
FINAL REPORT TECHNIQUE: Axial images were obtained from the lung apex to the mid abdomen by computed tomography. Coronal reformatted images were obtained. This study was performed with techniques to keep radiation doses as low as reasonably achievable, (ALARA). Individualized dose reduction techniques using automated exposure control or adjustment of mA and/or kV according to the patient''s size were employed. CLINICAL HISTORY: Nodule follow-up COMPARISON: CT angiography 02/22/2022 FINDINGS: There is no axillary adenopathy. There is no hilar or mediastinal adenopathy. Heart size is normal. There is no pericardial or pleural effusion. There is a partially imaged gallbladder with multiple gallstones. If indicated additional follow-up could be performed. There is a 3 mm right lower lobe nodule seen best in image #41, stable. No new masses or nodules are identified. A shunt catheter is present. IMPRESSION: 3 mm right lower lobe nodule, stable. Probably partially imaged gallstones, if indicated additional follow-up could be performed. Reviewed, Interpreted and Dictated by Pj Mccray III, MD Transcribed by Alyson Evans Authenticated and [facility]
== END ==
PROVIDERS: PCP Emergency Medicine; Visit Provider Internal Medicine Pulmonary Disease
DX: R91.8 Other nonspecific abnormal finding of lung field (principal)
CPT/HCPCS: 71250

== ENCOUNTER 2023-07-21 13:30 | Emergency (ER) | payer MEDICAID, SELFPAY ==
[2023-07-21 13:30] VITALS: BP 136/89; PULSE 88; RESP 16; TEMP 36.5; O2SAT 98; BMI 28.0
--- NOTE | 2023-07-21 13:31 | ECG_ITS ---
APPROVED REPORT Exam: Resting ECG HR:82 bpm ECG Measurements Heart Rate 82 AXES MT 130 P 61 QRSd 87 QRS 95 QT 387 T 59 QTc 425 Conclusion SINUS RHYTHM BORDERLINE RIGHT AXIS DEVIATION [QRS AXIS > 90] Electronically signed by : BABAK KATZ, 07/21/2023 15:53:44
--- NOTE | 2023-07-21 13:52 | XR_ITS ---
FINAL REPORT CLINICAL HISTORY: Precordial chest pain COMPARISON: 02/21/2022 FINDINGS: PA and lateral views of the chest are obtained. 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 The cardiac and mediastinal silhouettes are within normal limits. The lungs are clear. There is no pleural effusion, pneumothorax, or acute osseous abnormality. IMPRESSION: No radiographic evidence of acute cardiac or pulmonary disease. Reviewed, Interpreted and Dictated by Yani Johnson MD Transcribed by Laila Pina Authenticated and [facility]
[2023-07-21] MEDS: KETOROLAC 30MG/ML VIAL 15 MG IV (13:58)
[2023-07-21 14:03] LABS: Coronavirus 19, PCR Not Detected (NotDetected); Influenza A, PCR Not Detected (NotDetected); Influenza B, PCR Not Detected (NotDetected)
[2023-07-21 14:05] LABS: Chloride 109 mmol/L (98-107); Potassium 3.4 mmoL/L (3.5-5.1); Sodium 142 mmol/L (136-145)
[2023-07-21 14:06] LABS: Basophils # 0.1 K/mm3 (0-0.2); Basophils % 1.3 % (0.1-2.0); Eosinophils # 0.2 K/mm3 (0.0-0.4); Eosinophils % 1.7 % (0.1-12.0); Hematocrit 43.8 % (37.0-47.0); Hemoglobin 14.8 g/dL (12.2-16.2); Lymphocytes # 2.9 K/mm3 (0.7-4.5); Mean Corpuscular HGB Conc 33.8 g/dL (31.8-35.4); Mean Corpuscular Hemoglobin 33.7 pg (27.0-31.2); Mean Corpuscular Volume 99.6 fl (81-99); Mean Platelet Volume 9.4 fl (7.4-10.4); Monocytes # 1.1 K/mm3 (0.1-1.0); Monocytes % 12.4 % (1.7-9.3); Neutrophils # 4.7 K/mm3 (1.8-7.8); Neutrophils % 52.5 % (37.0-80.0); Platelet Count 290 K/mm3 (142-424); Red Cell Distribution Width 12.9 % (11.5-17.5)
[2023-07-21 14:08] LABS: Alanine Aminotransferase 19 U/L (12-78); Albumin Level 4.2 g/dl (3.5-5.0); Albumin/Globulin Ratio 1.8 (1.1-1.8); Alkaline Phosphatase 64 U/L (38-126); Anion Gap 5.4 mEq/L (5-15); Aspartate Amino Transferase 22 U/L (14-36); Bilirubin,Total 0.3 mg/dl (0.2-1.3); Blood Urea Nitrogen 5 mg/dl (7-17); Carbon Dioxide 31 mmol/L (22.0-30.0); Creatinine Clearance Estimated 140 mL/min (50-200); Estimated Glomerular Filt Rate 94 ml/min (>60); GFR (African American) 113 ML/MIN (>60); Globulin 2.4 g/dL (1.3-3.2); Total Protein,Serum 6.6 g/dl (6.3-8.2)
[2023-07-21 14:09] LABS: Calcium 9.1 mg/dl (8.4-10.2); Glucose 94 mg/dl (74-100)
[2023-07-21 14:23] LABS: Troponin I < 0.01 ng/ml (0.00-0.034)
[2023-07-21 14:26] VITALS: BP 113/75; PULSE 69; O2SAT 99
[2023-07-21 14:30] VITALS: BP 112/77; PULSE 65; RESP 18; O2SAT 99
[2023-07-21 14:48] LABS: D-Dimer 0.38 ug/mL (0.0-0.5)
--- NOTE | 2023-07-21 14:57 | [facility].EDCP ---
Discharge Plan Disposition Patient Disposition: Home, Self-Care Condition: Good Prescriptions Prescriptions: No Action omeprazole 40 mg capsule,delayed release(DR/EC) 40 mg PO DAILY Qty: 30 2RF budesonide-formoterol [Symbicort] 80-4.5 mcg/actuation HFA aerosol inhaler 1 inh inhalation BID 90 Days Qty: 10.2 3RF Referrals Follow up/Referrals: Eula Fox PA [Primary Care Provider] - See instructions Activity Restrictions/Add. Instructions Additional Instructions/Restrictions: You were evaluated in the emergency department today. Please take Tylenol at home as needed for pain. Apply heat or ice as needed for comfort. Follow-up closely with your primary care provider. Return to the emergency department for new or worsening symptoms Clinical Impressions Clinical Impression: Acute chest wall pain Stand Alone Forms Stand Alone Forms: Work/School Release Instructions Patient Instructions: DI for Atypical Chest Pain, DI for Costochondritis Discharge ED Provider: Izzy Teixeira HPI General Chief Complaint: Chest Pain Stated Complaint: chest pain Time Seen by Provider: 07/21/23 13:38 Mode of Arrival: Ambulatory Source of Information: Patient Limitations: No Limitations Description of Symptoms (Recalled from ER Triage Doc. by RN): c/o chest pain, pt states that this morning around 0645 with small center chest pain, pt thought it was gas, she took gas relief and then laid down when the pain increased and is more to her left side. History of Present Illness HPI narrative: This patient is a 37-year-old female with a history of anxiety and depression presenting with concern for chest pains. According to the patient, she woke up this morning around 6:45 in the morning with pain in the center of her chest that is worse with movement. She thought that maybe it was gas, so she took gas relief medication but did not have good improvement. She laid down for a bit longer, when she got up again, she was continued to have the pain. It is worse with movement and inspirations. She took Tylenol without good improvement. Given this, she decided to come in because she has extensive family cardiac history. No history of blood clots, clotting disorders, recent surgery, calf pain or swelling, or other concerns. No fevers, cough, congestion, abdominal pain, nausea, vomiting, or other concerns Related Data Previous Rx's Medication Instructions Recorded omeprazole 40 mg capsule,delayed 40 mg PO DAILY GERD #30 caps 08/26/22 release budesonide-formoterol HFA 80 1 inh inhalation BID 90 days #10.2 06/04/23 mcg-4.5 mcg/actuation aerosol grams inhaler (Symbicort) Allergies Allergy/AdvReac Type Severity Reaction Status Date / Time gabapentin Allergy Intermediate Verified 06/04/23 11:13 aspirin Allergy Verified 06/04/23 11:13 [facility] Disclaimer: The information contained in this section may have been updated after the patient was seen, as this information can be updated by other users. Medical History Allergic rhinitis Anxiety Depression Surgical History H/O tubal ligation H/O section History of brain shunt Family History Other Asthma Heart attack Hypertension Stroke Social History Smoking Status: Current every day smoker tobacco type: cigarettes packs per day: 1 and smokeless tobacco alcohol intake: former substance use type: denies use current occupational status: unemployed Travel in the last 8 weeks: None household members: family housing: house number of children: 2 ROS Obtained: Yes All systems reviewed & no additional complaints except as documented Physical Exam General General appearance: alert and in no apparent distress Head Head exam: atraumatic and normocephalic Eye Eye exam: Present normal appearance, PERRL and EOMI ENT ENT exam: Present normal exam, normal oropharynx, mucous membranes moist and normal external ear exam Neck Neck exam: Present normal inspection, full ROM and trachea midline; Absent tenderness Chest Chest inspection: Present symmetric chest wall rise and tenderness (Sternal. Pain is reproducible with palpation. Pain is reproducible with movement.) Respiratory Respiratory exam: Present normal lung sounds bilaterally; Absent respiratory distress, wheezes, stridor or accessory muscle use Cardiovascular Cardiovascular exam: Present regular rate and normal rhythm Abdominal Exam Abdominal exam: Present soft; Absent distention, tenderness or guarding Extremities Exam Extremities exam: Present normal inspection, full ROM and normal capillary refill; Absent tenderness or edema Back Exam Back exam: Present normal inspection and full ROM; Absent tenderness Neurological Exam Neurological exam: Present alert, oriented X3, CN II-XII intact and normal gait; Absent motor sensory deficit Psychiatric Psychiatric exam: Present normal affect and normal mood Skin Skin exam: Present warm and dry HEART Score HEART Score HEART Score assessment performed?: No History (anamnesis): Slightly suspicious ECG: Normal Age: <45 years Risk factors: No known risk factors Troponin: </= normal limit HEART Score: 0 Critical Care Critical Care Time Critical Care Time: No Medical Decision Making Medical Records Medical records reviewed: Yes I reviewed the patient's medical records. [place] Inquiry Pt receiving controlled substance: No Vital Signs Vital Signs: 07/21/23 13:30 07/21/23 14:26 07/21/23 14:30 Temperature 97.7 F Temperature Source Oral Pulse Rate 69 65 Pulse Rate [Left Radial] 88 Respiratory Rate 16 18 Blood Pressure 113/75 112/77 Blood Pressure [Right Arm] 136/89 Blood Pressure Mean [Right Arm] 104 Blood Pressure Source Blood Pressure Source [Right Arm] Automatic Cuff Blood Pressure Position [Right Arm] Sitting 02 Sat by Pulse Oximetry 98 99 99 Oxygen Delivery Method Room Air Room Air Room Air 07/21/23 15:16 Temperature 97.7 F Temperature Source Oral Pulse Rate 72 Pulse Rate [Left Radial] Respiratory Rate 18 Blood Pressure 107/64 L Blood Pressure [Right Arm] Blood Pressure Mean [Right Arm] Blood Pressure Source Automatic Cuff Blood Pressure Source [Right Arm] Blood Pressure Position [Right Arm] 02 Sat by Pulse Oximetry Oxygen Delivery Method Room Air Lab Data Labs: Lab Results 07/21/23 13:35: WBC 9.0, RBC 4.40, Hgb 14.8, Hct 43.8, MCV 99.6 H, MCH 33.7 H, MCHC 33.8, RDW 12.9, Plt Count 290, MPV 9.4, Neut % (Auto) 52.5, Lymph % (Auto) 32.0, Bledsoe % (Auto) 12.4 H, Eos % (Auto) 1.7, Baso % (Auto) 1.3, Neut # (Auto) 4.7, Lymph # (Auto) 2.9, Bledsoe # (Auto) 1.1 H, Eos # (Auto) 0.2, Baso # (Auto) 0.1, D-Dimer 0.38, Sodium 142, Potassium 3.4 L, Chloride 109 H, Carbon Dioxide 31 H, Anion Gap 5.4, BUN 5 L, Creatinine 0.70, Estimated Creat Clear 140, Estimated GFR 94, Est GFR ( Amer) 113, Glucose 94, Calcium 9.1, Total Bilirubin 0.3, AST 22, ALT 19, Alkaline Phosphatase 64, Troponin I < 0.01, Total Protein 6.6, Albumin 4.2, Globulin 2.4, Albumin/Globulin Ratio 1.8 07/21/23 13:57: SARS-CoV-2 (PCR) Not detected, Influenza A Untype (PCR) Not detected, Influenza Type B (PCR) Not detected 07/21/23 13:35 07/21/23 13:35 Response Orders (Tests/Meds): ED MEDICATIONS Discontinued Medications Generic Name Dose Route Start Last Admin Trade Name Freq PRN Reason Stop Dose Admin Ketorolac Tromethamine 15 mg 07/21/23 13:52 07/21/23 13:58 Ketorolac 30mg/Ml Vial IV 07/21/23 13:53 15 mg ONCE ONE Administration ORDERS Category Date Time Status XR chest 2V Stat Exams 07/21/23 13:52 Completed CMP [Comprehensive Metabolic Panel] Stat Lab 07/21/23 13:35 Completed Complete Blood Count Auto Diff Stat Lab 07/21/23 13:35 Completed D-Dimer Stat Lab 07/21/23 13:35 Completed Rapid PCR Covid and Flu A/B Stat Lab 07/21/23 13:57 Completed Troponin I Stat Lab 07/21/23 13:35 Completed ECG Data Tracing #1: Attestation: I reviewed this ECG and interpreted as documented below: ECG Narrative: Normal sinus rhythm with a ventricular rate of [address] changes concerning for ischemia. Normal intervals. ECG initial impression date: 07/21/23 ECG initial impression time: 13:37 MDM Narrative Medical Decision Narrative: In summary, this patient is a 37-year-old female presenting to the Emergency Department for evaluation of chest pains. Differential diagnoses considered include but are not limited to costochondritis, musculoskeletal chest pain, ACS, dysrhythmia, GERD, pleurisy, PE. Ruling out the most morbid conditions drove assessment. On exam, the patient is well-appearing. She has reproducible pain with palpation of her chest and it is also worse with movement. Favor musculoskeletal pain at this time. Vitals are normal on cardiac telemetry. Workup included CBC, CMP, troponin, D-dimer, chest x-ray, and EKG. EKG obtained is reassuring. I independently interpreted x ray prior to the radiologist read and noted no consolidation, pneumothorax, or other concerns. Please see their read for final interpretation. Labs were obtained that demonstrated negative D-dimer, negative troponin, and no other acutely concerning abnormalities. On reassessment, patient had significant improvement after administration of Toradol. I still maintain that this is likely musculoskeletal pain, as it is completely reproducible on exam with palpation and is worse with movement. D-dimer is negative, and heart score is overall 0. Patient is in agreement with this. At this time, feel that she is appropriate for discharge with instructions for supportive management and strict return precautions. Patient was discharged in stable condition after all questions were answered.
[2023-07-21 15:16] VITALS: BP 107/64; PULSE 72; RESP 18; TEMP 36.5; O2SAT 99
== END 2023-07-21 15:17 | disposition home or self-care (01) ==
PROVIDERS: Emergency Provider Emergency Medicine; PCP Physician Assistant
DX: R07.89 Other chest pain (principal); F17.210 Nicotine dependence, cigarettes, uncomplicated; F41.9 Anxiety disorder, unspecified; F32.A Depression, unspecified
CPT/HCPCS: 71046; 80053; 84484; 85025; 85378; 87636; 93005; 96374; 99284

== ENCOUNTER 2023-12-08 19:13 | Emergency (ER) | payer MEDICAID, SELFPAY ==
[2023-12-08 19:13] VITALS: BP 114/70; PULSE 76; RESP 18; TEMP 36.9; O2SAT 100
--- NOTE | 2023-12-08 19:18 | PC.NURSE ---
trauma alert cancelled at this time
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
[2023-12-08 19:29] LABS: Basophils # 0.1 K/mm3 (0-0.2); Basophils % 0.9 % (0.1-2.0); Eosinophils # 0.1 K/mm3 (0.0-0.4); Eosinophils % 1.1 % (0.1-12.0); Hemoglobin 13.4 g/dL (12.2-16.2); Lymphocytes # 2.6 K/mm3 (0.7-4.5); Lymphocytes % 21.7 % (10-50); Mean Corpuscular Hemoglobin 32.2 pg (27.0-31.2); Mean Corpuscular Volume 100.9 fl (81-99); Mean Platelet Volume 8.3 fl (7.4-10.4); Monocytes # 0.6 K/mm3 (0.1-1.0); Monocytes % 5.3 % (1.7-9.3); Neutrophils # 8.4 K/mm3 (1.8-7.8); Neutrophils % 70.9 % (37.0-80.0); Platelet Count 256 K/mm3 (142-424); Red Blood Count 4.16 M/mm3 (4.20-5.40); Red Cell Distribution Width 13.5 % (11.5-17.5); White Blood Count 11.8 K/mm3 (4.8-10.8)
[2023-12-08 19:36] LABS: Albumin Level 4.1 g/dl (3.5-5.0); Chloride 109 mmol/L (98-107); Potassium 3.6 mmoL/L (3.5-5.1); Sodium 138 mmol/L (136-145)
[2023-12-08 19:39] LABS: Alanine Aminotransferase 15 U/L (12-78); Albumin/Globulin Ratio 1.7 (1.1-1.8); Alkaline Phosphatase 58 U/L (38-126); Anion Gap 7.6 mEq/L (5-15); Aspartate Amino Transferase 19 U/L (14-36); Bilirubin,Total 0.7 mg/dl (0.2-1.3); Blood Urea Nitrogen 8 mg/dl (7-17); Calcium 8.6 mg/dl (8.4-10.2); Carbon Dioxide 25 mmol/L (22.0-30.0); Estimated Glomerular Filt Rate 93 ml/min (>60); GFR (African American) 113 ML/MIN (>60); Globulin 2.4 g/dL (1.3-3.2); Glucose 108 mg/dl (74-100); Total Protein,Serum 6.5 g/dl (6.3-8.2)
[2023-12-08 19:41] LABS: Activated Partial Thrombo Time 29.3 seconds (22.8-30.6); INR 0.96 (0.9-1.1); Prothrombin Time 10.8 seconds (10.1-12.5)
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
[2023-12-08] MEDS: ACETAMINOPHEN 500MG TAB 1000 MG PO (19:49)
[2023-12-08 20:22] LABS: HCG Qualitative, Serum Negative (Negative)
[2023-12-08] MEDS: SODIUM CHLORIDE 0.9% 10ML SYR (RAD ONLY) 10 ML IV (21:06)
[2023-12-08] MEDS: IOPAMIDOL-370 (76%);100ML BOTTLE 80 ML IV (21:06)
[2023-12-08] MEDS: 0.9 % SODIUM CHLORIDE 50 ML VIAL IV (21:06)
--- NOTE | 2023-12-08 21:19 | PC.NURSE ---
assisted patient to restroom
[2023-12-08 21:47] VITALS: BMI 21.2
[2023-12-08 22:13] VITALS: BP 110/66; PULSE 56; RESP 17; TEMP 36.8; O2SAT 100
== END 2023-12-08 22:23 | disposition home or self-care (01) ==
PROVIDERS: Emergency Provider Emergency Medicine; PCP Internal Medicine
DX: M25.552 Pain in left hip (principal); M79.645 Pain in left finger(s); R20.0 Anesthesia of skin; V03.10XA Pedestrian on foot injured in collision with car, pick-up truck or van in traffic accident, initial encounter; F17.210 Nicotine dependence, cigarettes, uncomplicated; K21.9 Gastro-esophageal reflux disease without esophagitis; Z98.2 Presence of cerebrospinal fluid drainage device; Z86.69 Personal history of other diseases of the nervous system and sense organs; Y92.410 Unspecified street and highway as the place of occurrence of the external cause
CPT/HCPCS: 70450; 71275; 72125; 72128; 72131; 72192; 73110; 73130; 73502; 73552; 73562; 74174; 80053; 84703; 85025; 85610; 85730; 99285; Q9967

== ENCOUNTER 2024-12-10 11:58 | Outpatient (CLI) | payer MEDICAID, SELFPAY ==
--- NOTE | 2024-12-10 12:00 | XR_ITS ---
FINAL REPORT CLINICAL HISTORY: wrist pain FINDINGS: Right wrist TWO VIEW FINDINGS: Two views show no evidence of an acute, displaced fracture or dislocation of the visualized bony architecture. The joint spaces appear normal. IMPRESSION: Unremarkable exam. Authenticated and ERN
--- NOTE | 2024-12-10 12:00 | XR_ITS ---
FINAL REPORT CLINICAL HISTORY: hand pain FINDINGS: Right hand TWO VIEW FINDINGS: Two views show no evidence of an acute, displaced fracture or dislocation of the visualized bony architecture. The joint spaces appear normal. IMPRESSION: Unremarkable exam. Authenticated and ERN
--- OUTSIDE RECORDS SUMMARY | 2024-12-10 12:09 | XMS_ITS | Clinical Summary ---
Author Organization [employer] [facility] are Address [address] [place] [id number] Phone Care Team Providers Care Truck Rental Clerk Name Role Phone Unavailable Unavailable Conditions or Problems No information available. Medications No information available. Medications Administered No information available. Allergies, Adverse Reactions, Alerts No information available. Results Date Name Value Unit Range Flag Description Lab Report: Auto Diff, CBC BASOPH COUNT 0.1 X10(3)/MCL 10*3/mm3 0.0-0.2 Basophils [#/volume] in Blood by Manual count EOS COUNT 0.0 X10(3)/MCL 10*3/mm3 0.1-0.5 L eosinophil count , blood MONOSCT AUTO 1.0 X10(3)/MCL 10*3/uL 0.0-1.3 Monocytes [#/volume] in Blood by Automated count LYMPHCT AUTO 2.0 X10(3)/MCL 10*3/mm3 1.0-4.8 Lymphocytes [#/volume] in Blood by Automated count ANC 10.0 X10(3)/MCL 10*3/mm3 1.8-7.7 H neutrophil count , blood BASOPHIL % 0.4 % 0.0-2.0 Basophils/ 100 leukocytes in Blood by Manual count % EOS AUTO 0.2 % 0.0-6.0 Eosinophil s/100 leukocytes in Blood by Automated count MONOCYTE % 7.6 % 4.0-12.0 Monocytes /100 leukocytes in Blood by Automated count LYMPH% P BLD 15.2 % 17.0-46.0 L lympho cytes as percent of blood leukocytes PMN % 76.6 % 40.0-70.0 H Neutrophils /100 leukocytes in Blood by Automated count Lab Report: ABORh, ABSC IgG ABO/RH O NEG blood type wi th RH factor Lab Report: Hemogram MPV 8.5 fL 7.0-12.0 Platelet akrina n volume [Entitic volume] in Blood by [employer] PLATELETS 227 X10(3)/MCL 10*3/mm3 150-400 Platelets [#/volume] in Blood by Automated count RDW 13.6 % 11.5-14.5 Erythrocyte distribution width [Ratio] by Automated count OL-MCHC 34.4 g/dL 33.0-36.0 mean corpus cular hemoglobin concentration, rbc MCH 32.1 pg 27.0-33.2 MCH [Entiti c mass] by Automated count MCV 93.3 fL 80.0-95.8 MCV [Entiti c volume] by Automated count HCT 18.8 % 36.0-45.9 L Hematocrit [Volume Fraction] of Blood by Automated count HGB 6.5 g/dL 12.0-15.7 AA Hemoglobin [Mass/volume] in Blood RBC 2.01 X10(6)/MCL 10*6/mm3 4.00-5.10 L Erythrocytes [#/volume] in Blood by Automated count WBC COUNT 11.8 X10(3)/MCL 10*3/uL 4.0-11.0 H leukocyte count, blood Plan of Care No information available. Procedures No information available. Vital Signs No information available. Immunizations No information available. Advance Directives No information available.
--- OUTSIDE RECORDS SUMMARY | 2024-12-10 12:10 | XMS_ITS | Clinical Summary ---
Author Organization [facility] [place] Address [address] [place] [place] [address] Phone Care Team Providers Care Worksite Wellness Practitioner Name Role Phone Vanessa Lyon MD Primary Care Provider Allergies Active Allergy Reactions Criticality Noted Date Comments Aspirin 09/27/2011 Latex 09/27/2011 Medications MULTIVITAMINS (KID'S VITAMINS ORAL) Take by mouth 2 times daily. Active ACETAMINOPHEN (TYLENOL EXTRA STRENGTH ORAL) Take by mouth as needed. Active cyclobenzaprine (FLEXERIL) 5 mg tablet Take 5 mg by mouth 3 times daily as needed. Active venlafaxine (EFFEXOR) 25 mg Oral Tablet Take 25 mg by mouth 2 times daily. Active fluticasone (FLONASE) 50 mcg/actuation Nasl [place], Suspension by Nasal route daily. Active Immunizations Immunization Administration Dates Next Due MMR 02/22/2010 Surgical History Surgery Date Site/Laterality Comments SECTION 02/21/2010 N/A PRIMARY SECTION - SCIP performed by OSVALDO HOLLINGSWORTH at [facility] BRAIN SURGERY TUBAL LIGATION Medical History Medical History Date Comments Asthma Family History Medical History Relation Name Comments Diabetes Maternal Grandmother Hypertension Maternal Grandmother Cancer Mother Cancer Paternal Grandmother Relation Name Status Comments Maternal Grandmother Mother Paternal Grandmother Social History Tobacco Use Types Packs/Day Years Used Date Smoking Tobacco: Every Day Cigarettes 0.5 10 Smokeless Tobacco: Current Snuff Alcohol Use Standard Drinks/Week Comments Yes 0 (1 standard drink = 0.6 oz pur e alcohol) quit once Sexually Active Control Partners Comments Yes Male Comments No Sex and Gender Information Value Date Recorded Sex Assigned at Not on file Legal Sex Female 1:11 AM EDT Gender Identity Not on file Sexual Orientation Not on file Obstetrics History Para Term AB IAB SAB Ectopic Multiple Livin g Live Births 2 1 2 1 Date Outcome GA Total Labor Labor/2nd/3rd Weight Sex Type Anes PTL Mirna A1 A5 Name Clin 2009 Para 8h 30m/3h 50m/0h 01m 8 lb 12 oz (3.969 kg) M CS-LT ranv Epidur al Livin g 8 9 SANDS ,HANS TTA BABY 1 Sanjuana , Marihe diana Delivery Location:[facility] Last Filed Vital Signs Vital Sign Reading Time Taken Comments Blood Pressure 116/68 09/14/2019 7:22 PM EDT Pulse 76 09/14/2019 7:22 PM EDT Temperature 36.9 C (98.4 F) 09/14/2019 7:22 PM EDT Respiratory Rate 18 09/14/2019 7:22 PM EDT Oxygen Saturation 98% 09/14/2019 7:22 PM EDT Inhaled Oxygen Concentration - - Weight 82.3 kg (181 lb 6.4 oz) 09/14/2019 7:22 P M EDT Height 175.3 cm (5' 9 ) 09/14/2019 7:22 PM EDT Body Mass Index 26.79 09/14/2019 7:22 PM EDT Plan of Treatment Health Maintenance Due Date Last Done Comments Annual Wellness Exam 11/07/1987 Hepatitis B Vaccine (1 of 3 - 19+ 3-dose series) 11/07/2003 Pap Smear 08/29/2012 08/29/2009 Cervical Cancer Screening 2014 HPV/Pap Cotest 2014 DTaP/TDaP/Td (2 - Tdap) 07/11/2018 07/11/2008 COVID-19 Vaccine (2023-2 5 season) 2023 Breast Cancer Screening 2024 Influenza Vaccine (#1) 2024 Meningococcal B Vaccine Aged Out No l onger eligible based on patient's age to complete this topic Pneumococcal Vaccine 0-49 Aged Out No longer eligible based on patient's age to complete this topic Procedures Procedure Name Priority Date/Time Associated Diagnosis Comments SLEEVE MAKER CYTOLOGY REPORT Routine 08/29/2009 6 :58 AM EDT from Last 3 Months or Most Recently Relevant to Health Maintenance Results * SLEEVE MAKER CYTOLOGY REPORT (08/29/2009 6:58 AM EDT) Warper Tender Cytology Report PATIENT NAME:DIONNE FUENTES Warper Tender Cytology Report Accession Number Collected Date/Time Received Date/Time [id number] 08/29/09 06:58 EDT 08/30/09 06:58 EDT GY Specimen Source Specimen Vag/Cerv/Endocx?: Vaginal/Cervical/E ndocervical Statement of Adequacy Satisfactory for Evaluation. Transformation Zone Present. Diagnosis NEGATIVE FOR INTRAEPITHELIAL LESION OR MALIGNANCY. Comment The Pap Smear is a screening test that aids in the detection of cervical cancer and cancer precursors. Both false positive and false negative results can occur. The test should be used at regular intervals, and positive results should be confirmed before definitive therapy. Processed using the PenPathPrep Asphalt Blender automated cytology screening device (Circular). Tariff Inspector: COURT 09/14/2009 Completed by: OLGA Coelho (Electronically signed by) 09/14/2009 [facility] 08/29/2009 6:58 AM EDT [facility] PATHOLOGY ORDERABLES Final Res ult Performing Organization Address City/State/[facility] Co de Phone Number [facility] [address] [place] [address] from Last 3 Months or Most Recently Relevant to Health Maintenance Insurance [facility] [id number] [facility] [id number] MDR Care Teams Worksite Wellness Practitioner Relationship Specialty Start Date End Date Vanessa Lyon MD [address] [place] [phone] PCP - General Family Medicine 08/04/15
--- OUTSIDE RECORDS SUMMARY | 2024-12-10 12:10 | XMS_ITS | Clinical Summary ---
Author Organization [facility] Address [address] [place] [id number] Care Team Providers Care Media Associate Name Role Phone Historical, Centricity Primary Care Provider Michelle vailable Source Comments This information has been disclosed to you from confidential records protectedfrom disclosure by state law. You shall make no further disclosure of thisinformation without the specific, written, and informed release of theindividual to whom it pertains, or as otherwise permitted by law. A generalauthorization for the release of medical or other information is not sufficientfor the purposes of therelease of HIV test results or diagnoses. [id number] Allergies Active Allergy Reactions Criticality Noted Date Comments Aspirin Tachycardia Gabapentin Hives,Shortness Of Breath High 11/27/2022 Latex 09/27/2011 Medications fluticasone propionate (FLONASE) 50 mcg/actuation nasal spray Use 1 spray into each nostril daily. Active azelastine (ASTELIN) 137 mcg (0.1 %) nasal spray Use 1 spray into each nostril at bedtime. Use in each nostril as directed Active budesonide-form oteroL (SYMBICORT) 80-4.5 mcg/actuation inhaler Inhale 1 puff into the lungs 4 times a day as needed. Active omeprazole (PRILOSEC) 40 MG capsule Take 1 capsule (40 mg total) by mouth 2 times a day. 60 capsule 3 11/27/2022 Active acetaminophen (TYLENOL) 500 MG tablet Take 1 tablet (500 mg total) by mouth every 6 hours as needed. Active senna-docusate (SENNA-S) 8.6-50 mg per tablet Take 1 tablet by mouth 2 times a day. 30 tablet 03/11/2023 3:40 PM EST 03/11/2023 Active Active Problems Problem Noted Date Diagnosed Date Symptomatic cholelithiasis 03/26/2023 Umbilical hernia without obstruction and without gangrene 03/26/2023 Pain of upper abdomen 11/27/2022 Immunizations Immunization Administration Dates Next Due DTaP, 5 pertussis antigens 07/11/2008 Social History Tobacco Use Types Packs/Day Years Used Date Smoking Tobacco: Every Day Cigarettes Alcohol Use Standard Drinks/Week Comments Not Currently 0 (1 standard drink = 0.6 oz pur e alcohol) Comments No Sex and Gender Information Value Date Recorded Sex Assigned at Female 01/07/2023 11:34 AM EDT Legal Sex Female 8:59 PM EST Gender Identity Female 01/07/2023 11:34 AM EDT Sexual Orientation Not on file Last Filed Vital Signs Vital Sign Reading Time Taken Comments Blood Pressure 113/76 03/26/2023 3:37 PM EST Pulse 74 03/26/2023 3:37 PM EST Temperature 36.9 C (98.4 F) 03/11/2023 3:53 PM EST Respiratory Rate 16 03/11/2023 3:53 PM EST Oxygen Saturation 98% 03/26/2023 3:37 PM EST Inhaled Oxygen Concentration 98% 03/26/2023 3 :37 PM EST Weight 79.8 kg (176 lb) 03/26/2023 3:37 PM EST Height 170.2 cm (5' 7 ) 03/26/2023 3:37 PM EST Body Mass Index 27.57 03/26/2023 3:37 PM EST Plan of Treatment Health Maintenance Due Date Last Done Comments Hepatitis C Screening ([employer]) 1984 Alcohol Misuse Screening 2002 Depression Screening 2002 HIV Screening 2002 Immunization: Hepatitis B (1 of 3 - 19+ 3-dose series) 11/07/2003 Immunization: Pneumococcal (1 of 2 - PCV) 11/07/2003 Cervical Cancer Screening/Pap Smear ([employer]) 11/07/19 15 Immunization: DTaP/Tdap/Td (2 - Tdap) 07/11/2018 Immunization: COVID-19 ( season) 2023 12/07/2021 Mammogram ([employer]) 2024 Immunization: Influenza (MyChart) (#1) 2024 Insurance [facility] Care Teams Media Associate Relationship Specialty Start Date End Date Historical, Centricity PCP - General 12/20/11
[2024-12-10 14:51] LABS: Hematocrit 40.9 % (37.0-47.0); Hemoglobin 13.6 g/dL (12.2-16.2); Immature Granulocytes % 0.4 %; Mean Corpuscular HGB Conc 33.3 g/dL (31.8-35.4); Mean Corpuscular Hemoglobin 31.6 pg (27.0-31.2); Mean Corpuscular Volume 94.9 fl (81-99); Nucleated Red Blood Cells % 0 %; Platelet Count 288 K/mm3 (142-424); Red Blood Count 4.31 M/mm3 (4.20-5.40); Red Cell Distribution Width-SD 42.5 fL; White Blood Count 8.3 K/mm3 (4.8-10.8)
[2024-12-10 15:32] LABS: Alanine Aminotransferase 15 U/L (12-78); Albumin Level 4.3 g/dl (3.5-5.0); Albumin/Globulin Ratio 2.0 (1.1-1.8); Alkaline Phosphatase 53 U/L (38-126); Anion Gap 11.0 mEq/L (5-15); Aspartate Amino Transferase 19 U/L (14-36); Bilirubin,Total 0.3 mg/dl (0.2-1.3); Blood Urea Nitrogen 9 mg/dl (7-17); Calcium 8.6 mg/dl (8.4-10.2); Carbon Dioxide 26 mmol/L (22.0-30.0); Chloride 105 mmol/L (98-107); Cholesterol 144 mg/dl (140-200); Creatinine,Serum 0.50 mg/dl (0.52-1.04); Estimated Glomerular Filt Rate 137 ml/min (>60); GFR (African American) 165 ML/MIN (>60); Globulin 2.1 g/dL (1.3-3.2); Glucose 91 mg/dl (74-100); HDL Cholesterol 44 mg/dl (40-60); Potassium 4.0 mmoL/L (3.5-5.1); Sodium 138 mmol/L (136-145); Total Protein,Serum 6.4 g/dl (6.3-8.2); Triglycerides 151 mg/dl (30-150)
[2024-12-10 16:02] LABS: Thyroid Stimulating Hormone 1.47 uIU/mL (0.465-4.68)
== END 2024-12-10 23:59 | disposition home or self-care (01) ==
LOC: RAD 11:58
PROVIDERS: PCP Family Medicine; Visit Provider Family Medicine
DX: M25.539 Pain in unspecified wrist (principal); M79.643 Pain in unspecified hand; E03.9 Hypothyroidism, unspecified; F32.A Depression, unspecified
CPT/HCPCS: 73100; 73120; 80053; 80061; 84443; 85025